=== PATIENT | female | born 1995 | race Caucasian/White ===

== ENCOUNTER 2016-10-03 05:47 | Emergency (ER) | payer OTHER ==
[2016-10-03 05:19] LABS: URINE SOURCE CLEAN CATCH
[2016-10-03 05:32] LABS: URINE APPEARANCE CLOUDY; URINE BILIRUBIN NEG (NEG); URINE BLOOD NEG (NEG); URINE COLOR YELLOW; URINE GLUCOSE NEG (NEG); URINE KETONE NEG (NEG); URINE LEUKOCYTE ESTERASE TRACE (NEG); URINE NITRATE NEG (NEG); URINE PROTEIN NEG (NEG); URINE SPECIFIC GRAVITY 1.007 (1.003-1.035); URINE UROBILINOGEN 0.2 MG/DL (NEG)
[2016-10-03 05:34] LABS: CULTURE INDICATED? YES; U HYALINE CASTS AUWI 0-2 /[LPF]; URINE BACTERIA AUWI 1+ (NEGATIVE); URINE SQUAMOUS EPITHELIAL CELL OCC /[HPF]
== END 2016-10-03 06:01 | disposition home or self-care (01) ==
LOC: CED 05:47
PROVIDERS: Nurse Practitioner
DX: H66.92 Otitis media, unspecified, left ear (principal)
CPT/HCPCS: 81003; 84703; 87086; 99283; J1885